=== PATIENT | female | born 1950 | race Caucasian/White ===

== ENCOUNTER 2017-07-05 21:39 | Emergency (ER) | payer MEDICARE, BC ==
[2017-07-05 21:58] VITALS: BP 145/80
[2017-07-05] MEDS ORDERED: Fluorescein 1 MG Ophth Strip EYERT ONE (22:20)
[2017-07-05] MEDS ORDERED: Tetracaine HCl/PF 0.5% 4 ML Bottle EYERT ONE (22:21)
--- NOTE | 2017-07-05 22:56 | EDM.PDOC ---
ED HPI GENERAL MEDICAL PROBLEM - General Chief Complaint: Eye Problems Stated Complaint: EYE PROBLEM [id number] Time Seen by Provider: 07/05/17 22:00 Source of Information: Reports: Patient History Limitations: Reports: No Limitations - History of Present Illness INITIAL COMMENTS - FREE TEXT/NARRATIVE: scraped left eye on corner of cupboard door. Door swung open while bending down and when stood up corner of door scratched eye. . pain to left eye and blurring of vision Onset: Today Left Eye Pain Score (Numeric/FACES): 3 - Related Data Allergies Allergy/AdvReac Type Severity Reaction Status Date / Time No Known Allergies Allergy Verified 07/05/17 21:58 Home Meds: Home Meds Acyclovir 800 mg PO DAILY 07/05/17 [History] Aspirin [Adult Low Dose Aspirin EC] 81 mg PO ASDIRECTED 07/05/17 [History] Levothyroxine [Synthroid] 50 mcg PO ACBREAKFAST 07/05/17 [History] Omeprazole Magnesium [Prilosec] 2.5 mg PO DAILY 07/05/17 [History] Psyllium Husk [Metamucil] 0.4 gm PO DAILY 07/05/17 [History] Past Medical History Gastrointestinal History: Reports: Bowel Obstruction [employer] History: Reports: Endocrine/Metabolic History: Reports: Hypothyroidism Other Hematologic History: 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 ED EXAM GENERAL W FULL EYE - Physical Exam Exam: See Below Exam Limited By: No Limitations General Appearance: Alert, Moderate Distress Eye Exam: Bilateral Eye: EOMI, PERRL Eyelids: Left: Lid Everted for Exam, Bilateral: Normal Appearance Conjunctiva & Sclera: Right: Normal Appearance, Left: Injected Cornea Exam: Left: Corneal Abrasion (1 oclock), Examined with Flourescein Extraocular Movements: Bilateral: Intact Pupillary Size: Bilateral: 3 mm Pupillary Reaction: Bilateral: Brisk Ears: Normal External Exam Nose: Normal Inspection Throat/Mouth: Normal Inspection Head: Atraumatic, Normocephalic Neck: Normal Inspection, Supple Respiratory/Chest: No Respiratory Distress, Normal Breath Sounds Cardiovascular: Regular Rate, Rhythm Neurological: Alert, Oriented, Normal Cognition Skin Exam: Warm, Dry, Intact, Normal Color Course - Vital Signs Last Recorded V/S: Last Vital Signs Temp 99.0 F 07/05/17 21:47 Pulse 77 07/05/17 21:47 Resp 18 07/05/17 21:47 BP 145/80 H 07/05/17 21:47 Pulse Ox 98 07/05/17 21:47 - Orders/Labs/Meds Meds: Medications Discontinued Medications Generic Name Dose Route Start Last Admin Trade Name Mohanq PRN Reason Stop Dose Admin Fluorescein Sodium 1 mg 07/05/17 22:20 07/05/17 22:45 Ful-Lisa EYERT 07/05/17 22:21 1 mg ONETIME ONE Administration Gentamicin Sulfate Confirm 07/05/17 22:52 07/05/17 22:55 Gentak 0.3% Ophth Oint Administered 07/05/17 22:53 Not Given Dose 3.5 gm .ROUTE .STK-MED ONE Gentamicin Sulfate 3.5 gm 07/05/17 21:40 Gentak 0.3% Ophth Oint EYELF 07/05/17 21:41 .STK-MED ONE Tetracaine HCl 1 ml 07/05/17 22:21 07/05/17 22:45 Tetracaine 0.5% Steri-Unit Cori EYERT 07/05/17 22:22 1 ml ASDIRECTED ONE Administration Departure - Departure Time of Disposition: 22:52 Disposition: Home, Self-Care 01 Condition: Good Clinical Impression: Corneal abrasion Qualifiers: Encounter type: initial encounter Laterality: left Qualified Code(s): S05.02XA - Injury of conjunctiva and corneal abrasion without foreign body, left eye, initial encounter - Discharge Information Instructions: Corneal Abrasion, [id number] Forms: ED Department Discharge Additional Instructions: rest eyes dark glasses gentak eye ointment 0.3%, apply thin ribbon to left eye 4 times daily for 5 days Recheck with Eye Provider on Friday, follow up sooner if change in vision, or increased pain Tylenol or ibuprofen may alternate every 4 hours as needed for discomfort
== END 2017-07-05 23:00 | disposition home or self-care (01) ==
LOC: DL.ED 21:39
DX: S05.02XA Injury of conjunctiva and corneal abrasion without foreign body, left eye, initial encounter (principal); E03.9 Hypothyroidism, unspecified; Z79.899 Other long term (current) drug therapy; X58.XXXA Exposure to other specified factors, initial encounter
CPT/HCPCS: 99283; A9270